=== PATIENT | male | born 1955 | race African-American/Black ===

== ENCOUNTER 2019-12-24 15:56 | IRF | payer OTHER, SELFPAY ==
[2019-12-24 15:50] VITALS: BMI 28.0
--- NOTE | 2019-12-24 16:03 | PC.NURSE ---
This patient, Van James, was admitted to [facility] Room 225-01. Patient/family oriented to hospital policies and general routines including ID bracelet, bed and alarms, visiting hours, pain management, procedures, bathroom and other care routines, personal items, smoking policy, room service/diet, and visiting hours. Valuables list has been completed. Information on how to activate the Rapid Response Team has been discussed. Patient/Family are encouraged to report perceived risks to care and to ask questions if they do not understand what they are told or what they should do.
[2019-12-24 17:20] VITALS: BP 106/65; PULSE 76; RESP 20; TEMP 36.6; O2SAT 95
[2019-12-24] MEDS: ACETAMINOPHEN 325 MG TABLET PO (21:22)
[2019-12-24 22:00] VITALS: BP 118/73; PULSE 78; RESP 20; TEMP 36.7; O2SAT 98
[2019-12-25 05:12] LABS: Basophils Percent Auto 0.4 % (0.2-1.2); Eosinophils Absolute Auto 0.2 K/mm3 (0-0.3); Eosinophils Percent Auto 3.5 % (0-4.4); Hematocrit 29.1 % (42.0-52.0); Immature Granulocyte Absolute 0.09 K/mm3 (0.00-0.031); Immature Granulocyte Percent A 1.9 % (0-0.5); Lymphocytes Absolute Auto 1.11 K/mm3 (0.9-3.2); Mean Corpuscular HGB Conc 34.4 g/dl (32-36); Mean Corpuscular Hemoglobin 30.9 pg (26-34); Mean Corpuscular Volume 89.8 fl (80-100); Mean Platelet Volume 8.4 fl (7.4-10.4); Monocytes Absolute Auto 0.6 K/mm3 (0.1-0.6); Monocytes Percent Auto 12.3 % (2.6-8.5); Neutrophils Absolute Auto 2.7 K/mm3 (1.3-6.7); Neutrophils Percent Auto 57.9 % (45.5-73.1); Platelet Count Result 282 k/mm3 (150-375); Red Blood Count 3.24 M/mm3 (4.6-6.20); Red Cell Distribution Width 11.9 % (11.5-14.5); White Blood Count 4.6 K/mm3 (4.5-10.0)
[2019-12-25 05:26] LABS: Anion Gap 6 mmol/L (8-16); Blood Urea Nitrogen 28 mg/dL (9-20); Calcium 8.8 mg/dL (8.4-10.2); Carbon Dioxide 26 mmol/L (22-30); Chloride 104 mmol/L (98-107); Estimated CRCL calculation 68 ml/min; Estimated Glomerular Filt Rate > 60; Glucose 102 mg/dL (75-110); Potassium 4.5 mmol/L (3.4-5.0); Sodium 136 mmol/L (137-145)
[2019-12-25 06:00] VITALS: BP 84/50; PULSE 74; RESP 18; TEMP 36.4; O2SAT 100
[2019-12-25] MEDS: polyethylene glycoL 3350 17 GM POWD.PACK PO ×2 (08:19→17:15)
[2019-12-25] MEDS: SENNOSIDES 8.6 MG TABLET 17.2 MG PO ×2 (08:19→17:15)
[2019-12-25] MEDS: DOCUSATE SODIUM 100 MG CAPSULE PO ×2 (08:19→17:15)
[2019-12-25] MEDS: PANTOPRAZOLE 40 MG TABLET PO (08:19)
[2019-12-25] MEDS: CYCLOBENZAPRINE HCL 10 MG TABLET PO (08:23)
[2019-12-25] MEDS: ACETAMINOPHEN 325 MG TABLET PO ×4 (08:23→20:45)
--- NOTE | 2019-12-25 11:00 | WPDREHABHP ---
H&P: HPI History of Present Illness Date/Time: 12/25/19 13:15 Chief complaint: Spinal/ non-trauma Narrative: Van James is a 64 year old male HISTORY OF PRESENT ILLNESS: The patient's primary rehab impairment category is neurological condition The etiologic diagnosis is lumbar radiculopathy with neural compression I saw this patient [id number] on December 24 at 11:00 a.m. The patient is a 64-year-old right-handed Afro Portuguese male with a past medical history of lumbar scoliosis, lumbar radiculopathy, hypertension, osteoarthritis of the right hip, osteoarthritis of the spine and cardiac arrhythmia who presented to [facility] in November 25 2023 L4-S1 transforaminal interbody spinal fusion with L4/L5 [employer] osteotomies with Dr. Juaquin Reyes. He underwent the surgery on December 17, 2019 and postoperatively the patient has experienced acute postoperative pain acute blood-loss anemia, hypertension and constipation. The patient has off the shelf LSO brace for comfort with spinal precautions ( avoid heavy activity, avoid repetitive bending, no lifting objects greater than 10 pounds ) daily dressing change has been order with MediPort tape and gauze. He is to follow-up with Dr. Reyes in 2 weeks. Internal Medicine was consulted to manage comorbid conditions and continued him on his home doses of amlodipine and lisinopril however these needs to be held because of his blood pressure is running relatively low. Pain is being managed with oral and just 6. Anticoagulation was held until drains were removed on December 20, 2019. Patient will discharge to rehab and sexual sequential compression devices for DVT prophylaxis as patient is ambulatory the patient has had no travel outside the [place] or had contact with someone who is ill and has traveled outside the [place] in the past 21 days. The patient has not traveled to an area of the [place] that is experiencing no transmission of the Coronavirus and has not had close personal contact with anyone that has. The patient does not have a fever. The patient is not expressing lower respiratory illness symptoms Therapy was initiated at the acute care facility and the patient transferred to us from [facility] on December 24, 2019 on FALLS OR SURGERIES: The patient has had major surgeries in the 100 days prior to admission. They had no falls in the past year. They had no falls with injury in the past year. PAST MEDICAL HISTORY: activity intolerance secondary to pain, difficult intravenous access, essential hypertension, gastroesophageal reflux disease, lumbar scoliosis, lumbar radiculopathy, osteoarthritis of the hip and spine and cardiac arrhythmia however he does not recall what kind of cardiac dysrhythmia he has had PAST SURGICAL HISTORY: left ankle surgery with hardware and status post L4-S1 spinal fusion and L4-L5 osteotomies SOCIAL HISTORY: never smoker. Is social alcohol use only. No illicit drug use. Prior to this surgery the patient was independent ADLs and did not use an assistive device daily. For of her the patient states he would use the electric scooter at the store because he has had problems standing for long periods. The patient lives alone in a 1 story home with 2 steps to enter. The patient states he plans to go stay with his son in [place] after rehab until he is fully independent again. FAMILY HISTORY: Close family relatives have had hypertension and diabetes PRIOR LEVEL OF FUNCTION: Eating was INDEPENDENT Oral Care was INDEPENDENT Toileting Hygiene was INDEPENDENT Shower/Bathing was INDEPENDENT Upper Body Dressing was INDEPENDENT Lower Body Dressing was INDEPENDENT Donning/[place] Footwear was INDEPENDENT Rolling Left and Right was INDEPENDENT Sit to Lying was INDEPENDENT Lying to Sitting was INDEPENDENT Sit to Stand was INDEPENDENT Bed to Chair Transfers was INDEPENDENT Toilet Transfers was INDEPENDENT Walkin
[2019-12-25 13:10] VITALS: BMI 28.0
[2019-12-25 14:00] VITALS: BP 96/59; PULSE 72; RESP 16; TEMP 36.1; O2SAT 100
--- NOTE | 2019-12-25 14:34 | PCNSR ---
On 12/25/19, the student, Evangelist Barksdale, provided care and completed [facility] on this patient. I have reviewed the student's documentation and agree with the findings.
--- NOTE | 2019-12-25 15:14 | RPD ---
INDIVIDUALIZED PLAN OF CARE FOR Van James Brief Synthesis of Pre-Admission Screen, Post-Admission Evaluation and Therapy Evaluations: The patient presents to rehab with lumbar radiculopathy with neural compression. Comorbidities include status post L4-S1 spinal fusion and L4-L5 osteotomies, hypertension, acute postoperative pain, acute blood loss anemia, hypocalcemia, and constipation.The complexity of the patient's medical management, nursing, and therapy needs require an inpatient rehab hospital stay with a physician-led interdisciplinary team approach. The patient?s needs will be best met in an intensive program vs. at a lower level of care. The patient requires physician services for medical oversight, management of post-op complications in setting of present comorbidities, and pain management. The patient requires nursing services for anticoagulation therapy, DVT prophylactics, infection protection, medication management and education, pressure relief, and wound care. Deficits include:ADLs, Balance, Endurance, Family Training/Education, Mobility, Pain Management, ROM, Safety, Strength, and Transfers. Underwater Roboticist/Case Management for: Discharge Planning and Patient/Family Counseling Physical Therapy: 5 days per week for 90 minutes. Treatments may include: Therapeutic Exercise, Gait Training, Neuromuscular Re-education, Transfer Training, Community Reintegration, Bed Mobility, Patient/Family Education, Wheelchair Mobility Group Therapy/Concurrent Therapy Rationales: -Improve attention span during functional activities in a distracted environment. -Enhance problem solving and/or adequate judgment skills during functional activities in a distracted environment. -Promote increased safety awareness in a distracted environment to reduce fall risk with functional tasks, transfers, and ambulation to allow a more safe, self-sufficient return to the home environment. -Improve dynamic balance skills to promote safety and independence with functional activities in a distracted environment for maximum gain. Occupational Therapy: 5 days per week for 90 minutes. Treatments may include: Therapeutic Exercise, Therapeutic Activity, Cognitive Training, Self-Care Transfer Training, Community Reintegration, Home Management, Patient/Family Education, Wheelchair Mobility Training, Energy Conservation Training Group Therapy/Concurrent Therapy Rationales: -Allow therapist to observe and teach generalization and carry-over of skills learned in individual therapy. -Enhance problem solving and sequencing skills during therapeutic activities in a distracted environment. -Promote increased safety awareness in a realistic setting to reduce fall risk with functional tasks due to visual and verbal distractions. -Increase functional level with ADLs, ADL transfers and use of adaptive equipment through therapeutic activities with others while promoting safety to allow a more safe, self-sufficient return home. Medical Prognosis: Good Anticipated Length of Stay: 7 days Rehab Goals: Eating Goal: 06-Independent Oral Hygiene Goal: 06-Independent Toileting Hygiene Goal: 06-Independent Shower/Bathe Self Goal: 06-Independent Upper Body Dressing Goal: 06-Independent Lower Body Dressing Goal: 06-Independent Putting On/Taking Off Footwear Goal: 06-Independent Rolling Left and Right Goal: 06-Independent Sit to Lying Goal: 06-Independent Lying to Sitting on Side of Bed Goal: 06-Independent Sit to Stand Goal: 06-Independent Chair/[id number] Transfer Goal: 06-Independent Toilet Transfer Goal: 06-Independent Car Transfer Goal: 06-Independent Walk 10' Goal: 06-Independent Walk 50' with Two Turns Goal: 06-Independent Walk 150' Goal: 06-Independent Walk 10' on Uneven Surface Goal: 06-Independent 1 Step (Curb) Goal: 06-Independent 4 Steps Goal: 06-Independent 12 Steps Goal Score: 06-Independent Picking Up Object Goal: 06-Independent Wheel 50' with Two Turns Score: 06-Independent Wheel
[2019-12-25 21:08] VITALS: BP 105/58; PULSE 77; RESP 18; TEMP 36.6; O2SAT 100
[2019-12-26] MEDS: ACETAMINOPHEN 325 MG TABLET PO ×5 (05:15→20:48)
[2019-12-26 05:43] VITALS: BP 101/51; PULSE 72; RESP 18; TEMP 36.6; O2SAT 100
[2019-12-26 08:00] VITALS: PULSE 79; RESP 20; O2SAT 93
--- NOTE | 2019-12-26 08:29 | PCPTNOTE ---
Van James was evaluated for a wheeled walker on 12/26/2019 by this physical therapist. The wheeled walker will resolve patient's mobility limitations and will be used for ADL's within the home. The patient can safely use the wheeled walker. ?The wheeled walker will resolve the patient?s mobility deficits, including indpendent transfers/gait/ADL's. Gabriela Lo PT
[2019-12-26] MEDS: DOCUSATE SODIUM 100 MG CAPSULE PO ×2 (08:59→18:17)
[2019-12-26] MEDS: amLODIPine BESYLATE 5 MG TABLET 10 MG PO (08:59)
[2019-12-26] MEDS: SENNOSIDES 8.6 MG TABLET 17.2 MG PO ×2 (08:59→18:17)
[2019-12-26] MEDS: polyethylene glycoL 3350 17 GM POWD.PACK PO ×2 (08:59→18:16)
[2019-12-26] MEDS: lisinopriL 20 MG TABLET 40 MG PO (08:59)
[2019-12-26] MEDS: PANTOPRAZOLE 40 MG TABLET PO (09:00)
--- NOTE | 2019-12-26 12:38 | WPDNEURORHBP ---
Subjective Date/time seen: 12/26/19 12:38 Interval history: this 64-year-old Afro-Surinamese male is here post surgery on his lower back and doing remarkably well the admitting rehab diagnosis lumbar radiculopathy and his symptoms of pain and the radicular pain or getting better Patient denies any headache nausea vomiting chest pain or shortness of breath fever chills sore throat and they are planning to discharge him soon probably over the weekend Review of Systems Review of Systems: All systems reviewed & are unremarkable except as noted in HPI and below Functional Status Ambulation Ability Ability to Ambulate 10 Feet: Independent Ability to Ambulate 50 Feet With 2 Turns: Standby Assistance Ability to Ambulate 150 Feet: Standby Assistance Ambulation Assistive Devices: Walker, Wheeled Transfers Ability Ability to Transfer In/Out of Chair: Standby Assistance Exam Const: General: comfortable and no acute distress HENMT: General nose exam: Normal nares present Mouth: Yes moist mucous membranes Eyes: General: appearance normal, both eyes and all related structures Neck: Neck: no JVD Carotids: bruit Resp: Effort & Inspection: normal respiratory effort Auscultation: clear to auscultation bilaterally Cardio: Rate: regular rate Rhythm: regular rhythm GI: GI Palp: Yes Soft to palpation Auscultation: normal bowel sounds Skin: General skin exam: normal color and no rashes or lesions noted Other: the incision of the lower back is clean Neuro: Other: patient is awake alert well oriented time place and person has normal speech and language function normal cranial examination and improving strength in the lower extremities and good strength in his upper extremities Extrem: General: normal to inspection Psych: Mental Status: mental status grossly normal Objective Data Vital Signs Vital Signs: Vital Signs - 24 hr 12/25/19 14:00 12/25/19 21:08 12/26/19 05:43 Temperature 36.1 C L 36.6 C 36.6 C Pulse Rate 72 77 72 Respiratory Rate 16 18 18 Blood Pressure 96/59 L 105/58 L 101/51 L Pulse Oximetry 100 100 100 Intake/Output Intake/Output: Intake & Output 12/23/19 12/24/19 12/25/19 12/26/19 23:59 23:59 23:59 23:59 Intake Total 240 1140 400 Balance 240 1140 400 Meds/Results Medications: Active Medications Generic Name Dose Route Start Last Admin Trade Name Freq PRN Reason Stop Dose Admin Acetaminophen 325 mg 12/24/19 21:00 12/26/19 09:00 Tylenol Tablet PO 325 mg Q4HR MELLY Administration Amlodipine Besylate 10 mg 12/25/19 09:00 12/26/19 08:59 Norvasc PO 10 mg DAILY MELLY Administration Cyclobenzaprine HCl 10 mg 12/24/19 18:50 12/25/19 08:23 Flexeril PO 10 mg TID PRN Administration Muscle Spasm Docusate Sodium 100 mg 12/25/19 09:00 12/26/19 08:59 Colace Capsule PO 100 mg BID MELLY Administration Lisinopril 40 mg 12/25/19 09:00 12/26/19 08:59 Prinivil PO 40 mg DAILY MELLY Administration Oxycodone HCl 10 mg 12/24/19 19:58 12/25/19 17:20 Roxicodone Ir Tablet PO 10 mg Q4H PRN Administration Pain Rated 7-10 Pantoprazole Sodium 40 mg 12/25/19 09:00 12/26/19 09:00 Protonix PO 01/24/20 09:01 40 mg DAILY MELLY Administration Polyethylene Glycol 17 gm 12/25/19 09:00 12/26/19 08:59 Miralax PO 17 gm BID MELLY Administration Senna 17.2 mg 12/25/19 09:00 12/26/19 08:59 Senokot Tablet PO 01/24/20 09:01 17.2 mg BID MELLY Administration Progress Note: A&P Assessment and Plan (1) Hypotension: Code(s): I95.9 - Hypotension, unspecified Status: Acute (2) Hypertension: Code(s): I10 - Essential (primary) hypertension Status: Acute (3) Lumbar radiculopathy: Code(s): M54.16 - Radiculopathy, lumbar region Status: Acute (4) S/P lumbar spinal fusion: Code(s): Z98.1 - Arthrodesis status Status: Acute Additional Plan he is running low blood pressure however asymp
[2019-12-26 14:00] VITALS: BP 98/57; PULSE 79; RESP 20; TEMP 36.8; O2SAT 93
[2019-12-26] MEDS: CYCLOBENZAPRINE HCL 10 MG TABLET PO (18:17)
[2019-12-26 20:35] VITALS: BP 107/55; PULSE 82; RESP 20; TEMP 36.6; O2SAT 98
[2019-12-27 05:21] VITALS: BP 101/69; PULSE 77; RESP 18; TEMP 37.1; O2SAT 95
[2019-12-27] MEDS: ACETAMINOPHEN 325 MG TABLET PO ×5 (05:52→19:59)
[2019-12-27] MEDS: PANTOPRAZOLE 40 MG TABLET PO (09:36)
[2019-12-27] MEDS: DOCUSATE SODIUM 100 MG CAPSULE PO ×2 (09:36→18:03)
[2019-12-27] MEDS: polyethylene glycoL 3350 17 GM POWD.PACK PO (09:36)
[2019-12-27] MEDS: SENNOSIDES 8.6 MG TABLET 17.2 MG PO ×2 (09:36→18:03)
[2019-12-27 14:00] VITALS: BP 119/63; PULSE 79; RESP 20; TEMP 36.3; O2SAT 100
[2019-12-27 20:13] VITALS: BP 123/60; PULSE 98; RESP 18; TEMP 37.2; O2SAT 95
[2019-12-28 05:11] VITALS: BP 109/73; PULSE 71; RESP 18; TEMP 36.7; O2SAT 99
[2019-12-28] MEDS: SENNOSIDES 8.6 MG TABLET 17.2 MG PO ×2 (09:36→17:18)
[2019-12-28] MEDS: ACETAMINOPHEN 325 MG TABLET PO ×3 (09:36→20:52)
[2019-12-28] MEDS: PANTOPRAZOLE 40 MG TABLET PO (09:37)
[2019-12-28] MEDS: DOCUSATE SODIUM 100 MG CAPSULE PO ×2 (09:43→17:18)
[2019-12-28 14:00] VITALS: BP 107/69; PULSE 89; RESP 20; TEMP 36.9; O2SAT 96
--- NOTE | 2019-12-28 15:44 | WPDNEURORHBP ---
Subjective Date/time seen: 12/28/19 15:44 Interval history: this 64-year-old the is here status post surgery on his lumbosacral area with radiculopathy he is improving quite a bit and in fact walking with a walker quite a distance denies any headache nausea vomiting chest pain shortness of breath fever chills sore discharge planning is in couple of days Review of Systems Review of Systems: All systems reviewed & are unremarkable except as noted in HPI and below Functional Status Ambulation Ability Ability to Ambulate 10 Feet: Independent Ability to Ambulate 50 Feet With 2 Turns: Standby Assistance Ability to Ambulate 150 Feet: Standby Assistance Ambulation Assistive Devices: Walker, Wheeled Transfers Ability Ability to Transfer In/Out of Chair: Independent Exam Const: General: comfortable and no acute distress HENMT: General nose exam: Normal nares present Mouth: Yes moist mucous membranes Eyes: General: appearance normal, both eyes and all related structures Neck: Neck: supple and no JVD Resp: Effort & Inspection: normal respiratory effort Auscultation: clear to auscultation bilaterally Cardio: Rate: regular rate Rhythm: regular rhythm GI: GI Palp: Yes Soft to palpation Auscultation: normal bowel sounds Back/Spine/Pelvis: Other: the incision the patient lower back is clean and healthy Skin: General skin exam: normal color and no rashes or lesions noted Neuro: Other: the patient is awake alert well oriented to time place and person the motor sensory deficit is lower extremities significantly improved/continues to improve Extrem: General: normal to inspection Objective Data Vital Signs Vital Signs: Vital Signs - 24 hr 12/27/19 20:13 12/28/19 05:11 12/28/19 14:00 Temperature 37.2 C 36.7 C 36.9 C Pulse Rate 98 71 89 Respiratory Rate 18 18 20 Blood Pressure 123/60 109/73 107/69 Pulse Oximetry 95 99 96 Intake/Output Intake/Output: Intake & Output 12/25/19 12/26/19 12/27/19 12/28/19 23:59 23:59 23:59 23:59 Intake Total 1140 880 840 480 Balance 1140 880 840 480 Meds/Results Medications: Active Medications Generic Name Dose Route Start Last Admin Trade Name Freq PRN Reason Stop Dose Admin Acetaminophen 325 mg 12/24/19 21:00 12/28/19 09:36 Tylenol Tablet PO 325 mg Q4HR MELLY Administration Amlodipine Besylate 10 mg 12/25/19 09:00 12/26/19 08:59 Norvasc PO 10 mg DAILY MELLY Administration Cyclobenzaprine HCl 10 mg 12/24/19 18:50 12/26/19 18:17 Flexeril PO 10 mg TID PRN Administration Muscle Spasm Docusate Sodium 100 mg 12/25/19 09:00 12/28/19 09:43 Colace Capsule PO 100 mg BID MELLY Administration Lisinopril 40 mg 12/25/19 09:00 12/26/19 08:59 Prinivil PO 40 mg DAILY MELLY Administration Oxycodone HCl 10 mg 12/24/19 19:58 12/28/19 09:40 Roxicodone Ir Tablet PO 10 mg Q4H PRN Administration Pain Rated 7-10 Oxycodone HCl 5 mg 12/28/19 15:07 Roxicodone Ir Tablet PO Q4H PRN Pain Rated 4-6 Pantoprazole Sodium 40 mg 12/25/19 09:00 12/28/19 09:37 Protonix PO 01/24/20 09:01 40 mg DAILY MELLY Administration Polyethylene Glycol 17 gm 12/25/19 09:00 12/27/19 18:04 Miralax PO Not Given BID MELLY Senna 17.2 mg 12/25/19 09:00 12/28/19 09:36 Senokot Tablet PO 01/24/20 09:01 17.2 mg BID MELLY Administration Progress Note: A&P Assessment and Plan (1) Hypotension: Code(s): I95.9 - Hypotension, unspecified Status: Acute (2) Hypertension: Code(s): I10 - Essential (primary) hypertension Status: Acute (3) S/P lumbar spinal fusion: Code(s): Z98.1 - Arthrodesis status Status: Acute (4) Lumbar radiculopathy: Code(s): M54.16 - Radiculopathy, lumbar region Status: Acute Additional Plan we will continue the present regimen and discharge planning in couple of days
--- NOTE | 2019-12-28 17:15 | PC.NURSE ---
Inadvertantly charted against 12/26 dressing change. Unable to undo charting. I only performed 12/28/2019 0800 dressing.
[2019-12-28 22:00] VITALS: BP 130/76; PULSE 67; RESP 18; TEMP 36.7; O2SAT 98
[2019-12-29 06:00] VITALS: BP 131/63; PULSE 80; RESP 20; TEMP 36.9; O2SAT 100
[2019-12-29] MEDS: ACETAMINOPHEN 325 MG TABLET PO ×4 (08:38→20:19)
[2019-12-29] MEDS: polyethylene glycoL 3350 17 GM POWD.PACK PO (08:38)
[2019-12-29] MEDS: PANTOPRAZOLE 40 MG TABLET PO (08:38)
[2019-12-29] MEDS: SENNOSIDES 8.6 MG TABLET 17.2 MG PO ×2 (08:39→17:37)
[2019-12-29] MEDS: DOCUSATE SODIUM 100 MG CAPSULE PO ×2 (08:41→17:37)
[2019-12-29 14:00] VITALS: BP 142/85; PULSE 89; RESP 18; TEMP 36.6; O2SAT 100
--- NOTE | 2019-12-29 18:36 | WPDNEURORHBP ---
Subjective Date/time seen: 12/29/19 18:36 Interval history: this 64-year-old gentleman is here after having had surgery for the significant spinal issues his incision is clean is moving well in the rehab looking forward to be going home day after tomorrow denies any headache nausea vomiting chest pain shortness of breath fever chills sore throat Review of Systems Review of Systems: All systems reviewed & are unremarkable except as noted in HPI and below Functional Status Ambulation Ability Ability to Ambulate 10 Feet: Independent Ability to Ambulate 50 Feet With 2 Turns: Independent Ability to Ambulate 150 Feet: Standby Assistance Ambulation Assistive Devices: Walker, Wheeled Transfers Ability Ability to Transfer In/Out of Chair: Independent Exam Const: General: comfortable and no acute distress HENMT: General nose exam: Normal nares present Mouth: Yes moist mucous membranes Eyes: General: appearance normal, both eyes and all related structures Neck: Neck: supple and no JVD Resp: Effort & Inspection: normal respiratory effort Auscultation: clear to auscultation bilaterally Cardio: Rate: regular rate Rhythm: regular rhythm GI: GI Palp: Yes Soft to palpation Auscultation: normal bowel sounds Back/Spine/Pelvis: Other: the incision of lower back is clean Skin: General skin exam: normal color and no rashes or lesions noted Neuro: Other: patient with the walker is doing remarkably well and his left lower extremity weakness has significantly improved Extrem: General: normal to inspection Psych: Mental Status: mental status grossly normal Objective Data Vital Signs Vital Signs: Vital Signs - 24 hr 12/28/19 22:00 12/29/19 06:00 12/29/19 14:00 Temperature 36.7 C 36.9 C 36.6 C Pulse Rate 67 80 89 Respiratory Rate 18 20 18 Blood Pressure 130/76 131/63 142/85 H Pulse Oximetry 98 100 100 Intake/Output Intake/Output: Intake & Output 12/26/19 12/27/19 12/28/19 12/29/19 23:59 23:59 23:59 23:59 Intake Total 880 840 720 600 Balance 880 840 720 600 Meds/Results Medications: Active Medications Generic Name Dose Route Start Last Admin Trade Name Freq PRN Reason Stop Dose Admin Acetaminophen 325 mg 12/24/19 21:00 12/29/19 17:37 Tylenol Tablet PO 325 mg Q4HR MELLY Administration Amlodipine Besylate 10 mg 12/25/19 09:00 12/26/19 08:59 Norvasc PO 10 mg DAILY MELLY Administration Cyclobenzaprine HCl 10 mg 12/24/19 18:50 12/26/19 18:17 Flexeril PO 10 mg TID PRN Administration Muscle Spasm Docusate Sodium 100 mg 12/25/19 09:00 12/29/19 17:37 Colace Capsule PO 100 mg BID MELLY Administration Lisinopril 40 mg 12/25/19 09:00 12/26/19 08:59 Prinivil PO 40 mg DAILY MELLY Administration Oxycodone HCl 10 mg 12/24/19 19:58 12/28/19 09:40 Roxicodone Ir Tablet PO 10 mg Q4H PRN Administration Pain Rated 7-10 Oxycodone HCl 5 mg 12/28/19 15:07 12/28/19 20:51 Roxicodone Ir Tablet PO 5 mg Q4H PRN Administration Pain Rated 4-6 Pantoprazole Sodium 40 mg 12/25/19 09:00 12/29/19 08:38 Protonix PO 01/24/20 09:01 40 mg DAILY MELLY Administration Polyethylene Glycol 17 gm 12/25/19 09:00 12/29/19 17:38 Miralax PO Not Given BID MELLY Senna 17.2 mg 12/25/19 09:00 12/29/19 17:37 Senokot Tablet PO 01/24/20 09:01 17.2 mg BID MELLY Administration Progress Note: A&P Assessment and Plan (1) Hypotension: Code(s): I95.9 - Hypotension, unspecified Status: Acute (2) Hypertension: Code(s): I10 - Essential (primary) hypertension Status: Acute (3) S/P lumbar spinal fusion: Code(s): Z98.1 - Arthrodesis status Status: Acute (4) Lumbar radiculopathy: Code(s): M54.16 - Radiculopathy, lumbar region Status: Acute Additional Plan continue the present medical management PT OT and gait training discharge planning in couple of days
[2019-12-29 22:00] VITALS: BP 136/88; PULSE 82; RESP 18; TEMP 36.9; O2SAT 98
[2019-12-30] MEDS: ACETAMINOPHEN 325 MG TABLET PO ×5 (04:41→20:05)
[2019-12-30 06:00] VITALS: BP 136/87; PULSE 79; RESP 18; TEMP 36.9; O2SAT 97
[2019-12-30] MEDS: DOCUSATE SODIUM 100 MG CAPSULE PO ×2 (08:51→18:12)
[2019-12-30] MEDS: SENNOSIDES 8.6 MG TABLET 17.2 MG PO (08:51)
[2019-12-30] MEDS: PANTOPRAZOLE 40 MG TABLET PO (08:51)
[2019-12-30] MEDS: polyethylene glycoL 3350 17 GM POWD.PACK PO (08:52)
[2019-12-30 14:00] VITALS: BP 115/76; PULSE 87; RESP 16; TEMP 36.9; O2SAT 100
[2019-12-30 22:00] VITALS: BP 139/87; PULSE 83; RESP 18; TEMP 36.7; O2SAT 100
[2019-12-31] MEDS: ACETAMINOPHEN 325 MG TABLET PO ×4 (00:30→12:37)
[2019-12-31 06:00] VITALS: BP 148/83; PULSE 70; RESP 20; TEMP 36.8; O2SAT 100
[2019-12-31] MEDS: PANTOPRAZOLE 40 MG TABLET PO (09:10)
--- NOTE | 2019-12-31 11:25 | WPDNEURORHBP ---
Subjective Date/time seen: 12/31/19 11:25 Interval history: this pleasant 64-year-old Afro [place] gentleman was here receiving rehabilitation after having had surgery on his lower back for lumbar radiculopathy he has done remarkably well and is lower extremity weakness is improved he is ready to be discharged to continue the outpatient physical therapy denies any headache nausea vomiting chest pain shortness of breath fever chills sore throat and is quite happy with the care he received here Review of Systems Review of Systems: All systems reviewed & are unremarkable except as noted in HPI and below Functional Status Ambulation Ability Ability to Ambulate 10 Feet: Independent Ability to Ambulate 50 Feet With 2 Turns: Independent Ability to Ambulate 150 Feet: Independent Ambulation Assistive Devices: Walker, Wheeled Transfers Ability Ability to Transfer In/Out of Chair: Independent Exam Const: General: comfortable and no acute distress HENMT: General nose exam: Normal nares present Mouth: Yes moist mucous membranes Eyes: General: appearance normal, both eyes and all related structures Neck: Neck: supple and no JVD Resp: Effort & Inspection: normal respiratory effort Auscultation: clear to auscultation bilaterally Cardio: Rate: regular rate Rhythm: regular rhythm GI: GI Palp: Yes Soft to palpation Auscultation: normal bowel sounds Back/Spine/Pelvis: Other: patient's decision and the back is clean Skin: General skin exam: normal color and no rashes or lesions noted Neuro: Other: patient is awake alert well oriented with normal cranial examination normal upper extremity strength and significantly improved lower extremity strength and also the sensory deficit Extrem: General: normal to inspection Psych: Mental Status: mental status grossly normal Objective Data Vital Signs Vital Signs: Vital Signs - 24 hr 12/30/19 14:00 12/30/19 22:00 12/31/19 06:00 Temperature 36.9 C 36.7 C 36.8 C Pulse Rate 87 83 70 Respiratory Rate 16 18 20 Blood Pressure 115/76 139/87 148/83 H Pulse Oximetry 100 100 100 Intake/Output Intake/Output: Intake & Output 12/28/19 12/29/19 12/30/19 12/31/19 23:59 23:59 23:59 23:59 Intake Total 720 600 720 240 Balance 720 600 720 240 Meds/Results Medications: Active Medications Generic Name Dose Route Start Last Admin Trade Name Freq PRN Reason Stop Dose Admin Acetaminophen 325 mg 12/24/19 21:00 12/31/19 09:09 Tylenol Tablet PO 325 mg Q4HR MELLY Administration Amlodipine Besylate 10 mg 12/25/19 09:00 12/26/19 08:59 Norvasc PO 10 mg DAILY MELLY Administration Cyclobenzaprine HCl 10 mg 12/24/19 18:50 12/26/19 18:17 Flexeril PO 10 mg TID PRN Administration Muscle Spasm Docusate Sodium 100 mg 12/25/19 09:00 12/31/19 09:10 Colace Capsule PO Not Given BID MELLY Lisinopril 40 mg 12/25/19 09:00 12/26/19 08:59 Prinivil PO 40 mg DAILY MELLY Administration Oxycodone HCl 10 mg 12/24/19 19:58 12/28/19 09:40 Roxicodone Ir Tablet PO 10 mg Q4H PRN Administration Pain Rated 7-10 Oxycodone HCl 5 mg 12/28/19 15:07 12/28/19 20:51 Roxicodone Ir Tablet PO 5 mg Q4H PRN Administration Pain Rated 4-6 Pantoprazole Sodium 40 mg 12/25/19 09:00 12/31/19 09:10 Protonix PO 01/24/20 09:01 40 mg DAILY MELLY Administration Polyethylene Glycol 17 gm 12/25/19 09:00 12/31/19 09:10 Miralax PO Not Given BID [facility] Senna 17.2 mg 12/25/19 09:00 12/31/19 09:11 Senokot Tablet PO 01/24/20 09:01 Not Given BID [facility] Progress Note: A&P Assessment and Plan (1) Hypotension: Code(s): I95.9 - Hypotension, unspecified Status: Acute (2) Hypertension: Code(s): I10 - Essential (primary) hypertension Status: Acute (3) S/P lumbar spinal fusion: Code(s): Z98.1 - Arthrodesis status Status: Acute (4) Lumbar radiculopathy: Code(s): M54.16 - Radicul
--- NOTE | 2020-01-02 15:17 | PM.DS ---
DS: Admitting Diagnosis Admitting Diagnosis Admitting Diagnosis: Spinal/ non-trauma DS: Discharge Diagnosis Discharge Diagnosis (1) Hypotension: Code(s): I95.9 - Hypotension, unspecified Status: Acute (2) Hypertension: Code(s): I10 - Essential (primary) hypertension Status: Acute (3) S/P lumbar spinal fusion: Code(s): Z98.1 - Arthrodesis status Status: Acute (4) Lumbar radiculopathy: Code(s): M54.16 - Radiculopathy, lumbar region Status: Acute DS: Summary Hospital Course Reason for hospitalization: this pleasant 64-year-old gentleman was still admitted because of lumbar radiculopathy status post surgery on his lower back received the PT OT gait training and did significant improvement showing up was able to walk fairly decently with the aid of a walker the following independent measures were noted after the rehab Hospital Course: eating independent, oral hygiene independent, toileting independent, bathing independent, upper body dressing independent, lower body dressing independent, footwear independent, rolling in bed independent, sitting to lying independent, lying to sitting independent, sit to stand independent, car chair transfers independent, toilet transfers independent, car transfers independent, walking at 10 feet independent, walking 50 feet 2 turns independent, walking 150 feet independent, walking 10 feet uneven surfaces independent, car better step independent, 4 step setup, 12 step set up, picking object independent, wheelchair not applicable patient was sent home with the outpatient therapy and the follow-up appointment with the surgeon and the primary care physician Time Spent with Patient Time attestation: Total time spent providing and/or coordinating discharge services: Exam Const: General: comfortable and no acute distress HENMT: General nose exam: Normal nares present Mouth: Yes dry mucous membranes Eyes: General: appearance normal, both eyes and all related structures Neck: Neck: supple and no JVD Resp: Effort & Inspection: normal respiratory effort Auscultation: clear to auscultation bilaterally Cardio: Rate: regular rate Rhythm: regular rhythm GI: GI Palp: Yes Soft to palpation Auscultation: normal bowel sounds Skin: General skin exam: normal color and no rashes or lesions noted Neuro: Other: patient remained awake alert well oriented with normal speech and language function normal cranial nerve examination and significantly improved lower extremity weakness Extrem: General: normal to inspection Psych: Mental Status: mental status grossly normal Discharge Plan Discharge Attending physician on discharge: Semaj Thompson Discharging Clinician: Semaj Thompson Patient Disposition: Home, Self-Care Activity: may shower and no driving Diet: as tolerated Discharge Instructions: Activity instructions Do not drive until your follow up visit. No lifting more than 10 pounds. No repetitive bending or twisting. Change dressing daily with gauze and tape. Do not get incision wet. Take sponge baths. Do not take baths. Do not go swimming. Patient Instructions: Antibiotic Form, Pain Management (DC) Stand Alone Forms: General Discharge Information Follow-up/Referrals: Juaquin Reyes [Other] (Call office for appointment) Jairo,Harrison Griffin MD [Primary Care Provider] - Keep Reg. Scheduled Appt. Discharge Medications: New (DME) wheel walker Qty: 1 RF: 0 (DME) tub seat with bench Qty: 1 RF: 0 oxycodone 5 mg Tablet 5 mg PO Q4H PRN (Reason: Pain Rated 4-6) Qty: 45 RF: 0 Continued acetaminophen 325 mg Tablet 325 mg PO Q4H RF: 0 cyclobenzaprine 10 mg Tablet 10 mg PO TID PRN (Reason: Muscle Spasm) Qty: 90 RF: 0 amlodipine 10 mg tablet 10 mg PO DAILY Qty: 30 RF: 0 omeprazole 20 mg Capsule,Delayed Release(Dr/Ec) 20 mg PO DAILY Qty: 30 RF: 0 polyethylene glycol 3350 17 gram/dos
== END 2019-12-31 13:30 | disposition home or self-care (01) | DRG 560 ==
PROVIDERS: Admitting Provider Psychiatry & Neurology Neurology; PCP Family Medicine; Visit Provider Psychiatry & Neurology Neurology
DX: Z47.89 Encounter for other orthopedic aftercare (principal); D62 Acute posthemorrhagic anemia; M47.26 Other spondylosis with radiculopathy, lumbar region; I95.9 Hypotension, unspecified; I10 Essential (primary) hypertension; K21.9 Gastro-esophageal reflux disease without esophagitis; M16.11 Unilateral primary osteoarthritis, right hip; M41.86 Other forms of scoliosis, lumbar region; Z98.1 Arthrodesis status; Z23 Encounter for immunization
CPT/HCPCS: 36415; 80048; 85025; 90471; 90686; 97110; 97112; 97116; 97161; 97165; 97530; 97535; A9270; G0008

== ENCOUNTER 2020-01-31 10:45 | Outpatient (RCR) | payer OTHER, SELFPAY ==
--- NOTE | 2020-01-09 09:55 | PTOPEVAL ---
Thank you for referring Van James to [facility].? The patient is scheduled to be seen for therapy? 2 x/week for 4 weeks. Please review, sign, date and return this plan of care NASREEN. I agree with and certify that the following plan of care is medically necessary. Referring Physician Date Admitting Provider: Attending Provider: Semaj Thompson MD Referring Provider: *PT Outpatient Evaluation Start: 01/09/20 08:43 Freq: Status: Active Protocol: Document 01/09/20 08:48 TLM (Rec: 01/09/20 09:30 TLM [id number]) Therapy Assessment Status Assessment Status Assessment Status Evaluation Outpatient Past Medical History Past Medical History Source of Past Medical History Recalled from Previous Visit, Confirmed with Patient/Family Cardiovascular History Hx Hypertension Yes Gastrointestinal History Hx Gastroesophageal Reflux Disease Yes Musculoskeletal History Hx Arthritis Yes Hx Back Pain Yes Hx Orthopedic Surgery Yes: left ankle hardware Hx Spinal Surgery Yes: lumbar fusion Pain History Has Past Pain Affected Your Daily Life Yes: takes aleve, robaxin, tylenol and motrin Anesthesia History Hx Anesthesia Reactions No Significant History Evaluation Information Problem Diagnosis Spinal fusion L4-S1 Onset 12/17/19 Additional Evaluation Detail Pt works as a construction safety consultant, however, 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 Previous injury 3 years ago where he fell off a ladder at work and landed on his L side on a concrete brick. Had multiple surgeries after and had radiculopathy since. Reports difficulty with personal care, walking long distances, sitting longer than a half hour, standing longer than 10 min, limits travel and social activity as well as his work activity. Subjective Information Spinal fusion L4-S1 done at Query Text:As Reported By Patient/ [facility] on 12/17/19. Family 12/24/19 started inpatient rehab at [facility] for about a week. Was using a wheeled walker in rehab. Uses cane now. No device prior.
--- NOTE | 2020-02-06 09:22 | PCPTNOTE ---
Patient called & cancelled scheduled appointment this date due to being sick. Pt has been rescheduled for next week.
--- NOTE | 2020-02-14 11:33 | PCPTNOTE ---
Patient called & cancelled scheduled appointment this date due to no reason provided. He did not reschedule his re-eval. Will attempt to contact him for scheduling.
--- NOTE | 2020-02-29 10:54 | PCPTNOTE ---
Admitting Provider: Attending Provider: Semaj Thompson MD Patient:Van James Date of :1955 Discharge Note Patient has not returned for any further treatments since 01/31/2020, therefore he will be discharged at this time. Patient?s initial visit was on 01/09/2020 09:00 and he had a total of 7 visits with 2 cancellations. The goals have been not met. Thank you for referring this patient to [facility]. Please review, sign, date and return this discharge summary NASREEN. I have been updated about the patient's current status and I agree with discharge from the above service at this time. Referring Physician Date
== END 2020-02-29 12:10 | disposition home or self-care (01) ==
LOC: ANHPT 10:45
PROVIDERS: PCP Family Medicine; Visit Provider Psychiatry & Neurology Neurology
DX: M54.16 Radiculopathy, lumbar region (principal); Z98.1 Arthrodesis status
CPT/HCPCS: 97110; 97112; 97116; 97161; 97530